=== PATIENT | female | born 1970 | race Caucasian/White ===

== ENCOUNTER 2019-04-12 17:39 | Inpatient (IN) | payer MEDICAID ==
[~2019-04-12] VITALS: Ht 172.7 cm; Wt 104.0 kg
[2019-04-12 19:50] LABS: Basophils # (auto) 0 uL; Basophils % (auto) 0.5 % (0.0-2.0); Eosinophils # (auto) 0.1 uL; Eosinophils % (auto) 1.6 % (0.0-7.0); Hematocrit 42.2 % (36.0-46.0); Hemoglobin 13.9 g/dL (12.2-16.2); Lymphocytes # (auto) 2.1 uL; Lymphocytes % (auto) 27.7 % (10.0-50.0); Mean Corpuscular Hemoglobin 28.7 pg (28.0-32.0); Mean Corpuscular Volume 87.1 fL (80.0-100.0); Monocytes # (auto) 0.5 uL; Monocytes % (auto) 7.3 % (0.0-12.0); Neutrophils # (auto) 4.7 uL; Neutrophils % (auto) 62.9 % (37.0-80.0); Platelet Count (auto) 336 10^3/uL (140-450); Red Blood Cells 4.85 10^6/uL (4.0-5.20); Red Cell Distribution Width 13.4 % (11.8-14.3); White Blood Cell 7.5 10^3/uL (4.4-10.8)
[2019-04-12 19:58] LABS: Anion Gap 6 (5-15); Blood Urea Nitrogen 16 mg/dL (7-18); Calcium 7.8 mg/dL (8.5-10.1); Carbon Dioxide 25 mmol/L (21-32); Chloride 108 mmol/L (98-107); Glucose 105 mg/dL (74-106); Potassium 4.2 mmol/L (3.5-5.1); Sodium 139 mmol/L (136-145)
[2019-04-12 20:03] LABS: Alanine Aminotransferase 49 U/L (13-56); Alkaline Phosphatase 67 U/L (45-117); Aspartate Aminotransferase 33 U/L (15-37); Bilirubin, Total 0.3 mg/dL (0.2-1.0); GFR African American 81 mL/min; GFR Non-African American 67 mL/min; Total Protein 7.8 g/dL (6.4-8.2)
[2019-04-12 20:06] LABS: Urine Bacteria FEW /hpf (None Seen); Urine Blood Negative /uL (Negative); Urine Mucus FEW (None Seen); Urine Specific Gravity 1.023 (1.001-1.035); Urine WBC 1 /hpf (0 - 5)
[2019-04-13] MEDS ORDERED: ONDANSETRON HCL 4 MG/2 ML VIAL IV PRN (01:30)
[2019-04-13] MEDS ORDERED: TEMAZEPAM 15 MG CAP PO PRN (01:30)
[2019-04-13] MEDS ORDERED: ACETAMINOPHEN 325 MG TAB PO PRN (01:30)
[2019-04-13] MEDS ORDERED: cloNIDine HCL 0.1 MG TAB PO PRN (01:45)
--- NOTE | 2019-04-13 02:25 | NUR ---
MS admit from ER MANJEETMICHELLE admitted to tele/MS after SBAR received. Patient oriented to Krupa Vergara, primary RN, unit, room, bed, and unit policies regarding patient care and visiting hours. Patient weighed by bedscale and encouraged to call if they need something. All questions and concerns addressed, patient verbalized understanding. Note:
--- NOTE | 2019-04-13 02:54 | NUR ---
PATIENT ANSWERS IN COMPLETE SENTENCES AND HAS CLEAR SPEECH. PATIENT SITTING UP IN BED, BED IS LOCKED AT LOWEST POSITION, BED RAILS ARE UP X2. BEDSIDE TABLE WITHIN REACH. DISCUSSED POC WITH PATIENT; PATIENT VERBALIZED UNDERSTANDING. IV TO LEFT AC IS 22G, ASYMPTOMATIC, PATENT AND INTACT. WILL CONTINUE TO MONITOR Q1H AND PRN.
[2019-04-13] MEDS ORDERED: LISI-646 PO (03:07)
[2019-04-13] MEDS ORDERED: OMEP20TA PO (03:07)
[2019-04-13] MEDS ORDERED: INFLUENZA QUAD 2019-2020 0.5ml SYRG IM ONE (03:15)
[2019-04-13 04:51] VITALS: BP 90/41
--- NOTE | 2019-04-13 07:50 | NUR ---
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 no signs of distress noted. Plan of care discussed with patient and she verbalizes understanding. Bed in lowest position, bed rails up x2 and call light in reach. Will continue to monitor.
[2019-04-13 08:54] VITALS: BP 110/72
[2019-04-13] MEDS ORDERED: LISINOPRIL 20 MG TAB PO SCH (10:00)
[2019-04-13] MEDS: FAMOTIDINE 20 MG TAB PO SCH ×2 (10:00→21:31)
[2019-04-13] MEDS ORDERED: LORazepam 2MG/ML-1ML VIAL IV PRN ×2 (11:15→11:30)
[2019-04-13 11:28] LABS: INR 0.93 (0.9-1.15)
--- NOTE | 2019-04-13 11:40 | NUR ---
ROUNDS Dr Slaughter at bedside for rounds, new orders received and followed through. Patient updated on plan of care, verbalized understanding.
[2019-04-13] MEDS ORDERED: GADOTERIDOL 279.3mg/mL 20ml Vial IV ONE (11:50)
[2019-04-13 13:00] VITALS: BP 143/89
--- NOTE | 2019-04-13 13:07 | NUR ---
Patient returned Patient returned from MRI. No signs of distress noted.
--- NOTE | 2019-04-13 13:45 | NUR ---
GI CONSULT Dr Aguillon at bedside for rounds, new orders received and followed through. Patient updated on plan of care, verbalized understanding.
--- NOTE | 2019-04-13 15:59 | NUR ---
Social Service consult regarding Advance Directive. 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 Pt verbalized Services for any further concerns or issues.
[2019-04-13 17:00] VITALS: BP 131/84
[2019-04-13] MEDS: LORazepam 0.5 MG TAB PO PRN (18:41)
--- NOTE | 2019-04-13 19:18 | NUR ---
Care endorsed to DAYTON Henderson, night nurse.
--- NOTE | 2019-04-13 19:45 | NUR ---
Opening Shift Note Assumed care of patient, awake and alert, oriented x 4, clear speech, follows direction. On room air with even and unlabored respirations, no S/S of distress or SOB. Patient denies pain and nausea. Patient is ambulatory with steady gait. IV intact and patent. Bed low locked position with side rails up x 2 and call light within reach. Instructed on POC for egd tomorrow and npo after midnight, patient verbalized understanding. Instructed to call for assist PRN, will continue to monitor for changes Q1hr and PRN.
[2019-04-13 21:58] VITALS: BP 125/92
[2019-04-14 04:51] VITALS: BP 109/66
--- NOTE | 2019-04-14 07:01 | NUR ---
Closing Note patient resting in bed with even and unlabored respirations, no s/s of distress. endorsed care to day shift RN.
[2019-04-14 07:38] LABS: Basophils # (auto) 0 uL; Basophils % (auto) 0.7 % (0.0-2.0); Eosinophils # (auto) 0.3 uL; Eosinophils % (auto) 4.7 % (0.0-7.0); Hematocrit 40.8 % (36.0-46.0); Hemoglobin 13.3 g/dL (12.2-16.2); Lymphocytes % (auto) 35.4 % (10.0-50.0); Mean Corpuscular Hemoglobin 28.6 pg (28.0-32.0); Mean Corpuscular Hgb Conc. 32.5 g/dL (32.0-36.0); Mean Corpuscular Volume 87.9 fL (80.0-100.0); Monocytes # (auto) 0.5 uL; Monocytes % (auto) 8.3 % (0.0-12.0); Neutrophils # (auto) 2.8 uL; Neutrophils % (auto) 50.9 % (37.0-80.0); Platelet Count (auto) 287 10^3/uL (140-450); Red Blood Cells 4.65 10^6/uL (4.0-5.20); Red Cell Distribution Width 13.6 % (11.8-14.3); White Blood Cell 5.6 10^3/uL (4.4-10.8)
[2019-04-14 07:52] LABS: BUN/Creatinine Ratio 18.3; Calcium 8.8 mg/dL (8.5-10.1); Potassium 4.1 mmol/L (3.5-5.1)
--- NOTE | 2019-04-14 08:15 | NUR ---
Opening Shift Note Assumed care of patient, awake and alert, oriented x 4. No S/S of distress or SOB. Patient denies pain and nausea. Bed low locked position with side rails up x 2 and call light within reach. Instructed on POC, patient verbalized understanding. Instructed to call for assist PRN, will continue to monitor for changes Q1hr and PRN.
[2019-04-14] MEDS ORDERED: NALOXONE HCL 0.4 MG/ML VIAL ONE (08:18)
[2019-04-14] MEDS ORDERED: SODIUM CHLORIDE LOCK 10 ML ONE (08:18)
[2019-04-14] MEDS ORDERED: FLUMAZENIL 0.1 MG/ML INJ 10ML MDV IV ONE (08:18)
[2019-04-14] MEDS ORDERED: LIDOCAINE VISCOUS 2% 15ML UD ONE (08:18)
[2019-04-14] MEDS ORDERED: diphenhdrAMINE HCL 50 MG/1 ML VL ONE (08:19)
[2019-04-14 08:30] VITALS: BP 110/66
[2019-04-14] MEDS: LORazepam 0.5 MG TAB PO PRN (08:55)
--- NOTE | 2019-04-14 09:15 | NUR ---
OFF UNIT PATIENT TAKEN DOWN TO OR
[2019-04-14] MEDS: fentaNYL CITRATE 100 MCG/2 ML VL ONE ×2 (09:16→09:19)
[2019-04-14] MEDS: MIDAZOLAM HCL 5 MG/ML-1ML VIAL ONE ×2 (09:16→09:19)
[2019-04-14] MEDS: FAMOTIDINE 20 MG TAB PO SCH (10:00)
--- NOTE | 2019-04-14 10:05 | NUR ---
ON UNIT PATIENT RETURNED FROM OR
--- NOTE | 2019-04-14 12:07 | NUR ---
ENDORSED CARE ENDORSED CARE TO DAYTON WORTHINGTON
[2019-04-14 12:13] VITALS: BP 110/72
[2019-04-14 12:48] VITALS: BP 110/72
--- NOTE | 2019-04-14 14:25 | NUR ---
DISCHARGE INSTRUCTIONS GIVEN TO PT AND . BOTH VERBALIZED UNDERSTANDING FOR PRESCRIPTION ORDER, AND FOLLOW UP APPOINTMENT WITH PRIMARY CARE PROVIDER. EDUCATIONAL MATERIAL PROVIDED, QUESTIONS AND CONCERNS ADDRESSED. IV CATHETER DC'D CATHETER INTACT, NO PHLEBITIS. PT SAFELY ESCORTED OUT OF UNIT.
== END 2019-04-14 14:25 | disposition home or self-care (01) | DRG 347 ==
LOC: ER 17:39 → OVERFLOW 17:40 → EAST 04-13 03:37
PROVIDERS: ADMIT Nurse Practitioner; ATTEND Internal Medicine
PROC: 0D758ZZ Dilation of Esophagus, Via Natural or Artificial Opening Endoscopic (ICD-10-PCS; principal; 2019-04-14 09:13)
DX: M50.323 Other cervical disc degeneration at C6-C7 level (principal); R13.10 Dysphagia, unspecified; K57.30 Diverticulosis of large intestine without perforation or abscess without bleeding; D18.03 Hemangioma of intra-abdominal structures; E66.9 Obesity, unspecified; I10 Essential (primary) hypertension; K21.9 Gastro-esophageal reflux disease without esophagitis; M25.78 Osteophyte, vertebrae; F41.9 Anxiety disorder, unspecified; Z88.5 Allergy status to narcotic agent; Z91.041 Radiographic dye allergy status; Z88.8 Allergy status to other drugs, medicaments and biological substances; Z90.49 Acquired absence of other specified parts of digestive tract; Z90.710 Acquired absence of both cervix and uterus; Z90.89 Acquired absence of other organs; Z79.899 Other long term (current) drug therapy; Z68.34 Body mass index [BMI] 34.0-34.9, adult
CPT/HCPCS: 36415; 43248; 43450; 70490; 71045; 74176; 74183; 80048; 80053; 81001; 82105; 82378; 84443; 84484; 84702; 85025; 85610; 86301; 86304; 93005; G0378; J2250

== ENCOUNTER 2021-05-01 12:53 | Emergency (ER) | payer MEDICAID ==
[~2021-05-01] VITALS: Ht 172.7 cm; Wt 95.3 kg
[~2021-05-01 12:53] MED LIST: LISI20TA28 PO; OMEP20TA PO
[2021-05-01 14:30] VITALS: BP 140/88
== END 2021-05-01 15:01 | disposition home or self-care (01) ==
LOC: ER 12:53
DX: G51.0 Bell's palsy (principal); K02.9 Dental caries, unspecified; I10 Essential (primary) hypertension; K21.9 Gastro-esophageal reflux disease without esophagitis
CPT/HCPCS: 70450; 93005